=== PATIENT | female | born 1970 | race Two or more races ===

== ENCOUNTER 2021-12-10 20:31 | Emergency (ER) | payer SELFPAY ==
[~2021-12-10] VITALS: Ht 154.9 cm; Wt 73.0 kg
[2021-12-10] MEDS: KETOROLAC TROMETH 60MG/2ML VIAL IM ONE (23:07)
[2021-12-10] MEDS: TETANUS-DIPTH-ACEL PERTUSSIS 0.5ML SYR Tdap IM ONE (23:09)
[2021-12-10] MEDS ORDERED: AMOX500T86 PO (23:29)
[2021-12-10 23:33] VITALS: BP 128/79
== END 2021-12-10 23:45 | disposition home or self-care (01) ==
LOC: ER 20:35
DX: S81.831A Puncture wound without foreign body, right lower leg, initial encounter (principal); Z88.6 Allergy status to analgesic agent; M54.59 Other low back pain; W54.0XXA Bitten by dog, initial encounter; Y93.89 Activity, other specified; Y92.89 Other specified places as the place of occurrence of the external cause; Y99.8 Other external cause status
CPT/HCPCS: 90471; 90715; 96372; 99284; J1885